=== PATIENT | female | born 1970 | race Caucasian/White ===

== ENCOUNTER → 2020-08-11 | Outpatient (CLI) | payer OTHER, MEDICAID ==
[~2020-08-11] MED LIST: CATHETER FLUSH 10 ML SYR IV PRN; CITA10TA PO; HOLD METFORMIN - RECEIVED CONTRAST 20 ML VIAL IV SCH; IOHEXOL 350 MG/ML 100 ML (OMNIPAQUE 350) VIAL IV ONE; LAMO25TA8 PO; LEVE500T PO; LEVE500T99 PO; NS 100 ML (IVPB) BAG IV ONE; SULF1TAB38 PO
--- NOTE | 2020-08-11 15:49 | Diagnostic Imaging Report ---
PROCEDURE: CT abdomen with contrast only. TECHNIQUE: Multiple contiguous axial images were obtained through the abdomen after the administration of intravenous contrast. Auto Exposure Controls were utilized during the CT exam to meet ALARA standards for radiation dose reduction. INDICATION: Unintentional weight loss. COMPARISON: None available. FINDINGS: Lung bases are clear. No pericardial or pleural effusion. No free intraperitoneal air or fluid. The liver is on the upper limits of normal in size measuring 19 cm in length. No nodularity to liver surface. There are a few subcentimeter hypodensities within the liver of indeterminate in nature. The largest right lower lobe (segment 6) measures 0.8 cm as seen on image 35, series 2. Gallbladder is normally filled without radiopaque gallstones. No biliary duct dilatation. The spleen is normal in size without mass lesion. Pancreas is normal. No adrenal mass. Kidneys enhance symmetrically without solid mass or obstruction. No abdominal lymphadenopathy. No dilated loops of bowel. Normal caliber abdominal aorta. Normal regional skeleton. IMPRESSION: 1. Mild hepatomegaly without features of steatosis or cirrhosis. 2. There are few scattered subcentimeter hypodensities within liver that are too small to characterize but statistically likely benign cyst. Consider follow-up CT abdomen without and with IV contrast per the liver protocol in 3-6 months to ensure stability. 3. Otherwise, no abnormality within the abdomen. Dictated by: Dictated on workstation # [id number]
== END ==
LOC: RAD FS 14:30
PROVIDERS: ATTEND Physician Assistant Surgical
DX: R16.0 Hepatomegaly, not elsewhere classified (principal)
CPT/HCPCS: 74160

== ENCOUNTER → 2020-10-31 | Outpatient (CLI) | payer OTHER, MEDICAID ==
[~2020-10-31] MED LIST changes: -CATHETER FLUSH 10 ML SYR IV PRN; -HOLD METFORMIN - RECEIVED CONTRAST 20 ML VIAL IV SCH; -IOHEXOL 350 MG/ML 100 ML (OMNIPAQUE 350) VIAL IV ONE; -NS 100 ML (IVPB) BAG IV ONE
== END ==
LOC: LAB FS 15:59
PROVIDERS: ATTEND Internal Medicine Gastroenterology
DX: K29.60 Other gastritis without bleeding (principal); K29.70 Gastritis, unspecified, without bleeding; K29.80 Duodenitis without bleeding
CPT/HCPCS: 36415; 82784; 83516; 86677

== ENCOUNTER → 2020-12-12 | Outpatient (CLI) | payer MEDICAID, OTHER | LOC: LAB FS 10:10 | DX: Z01.812 Encounter for preprocedural laboratory examination (principal); Z20.822 Contact with and (suspected) exposure to COVID-19 | CPT/HCPCS: 87635 ==

== ENCOUNTER → 2021-04-17 | Outpatient (CLI) | payer MEDICAID | LOC: LAB FS 10:10 | PROVIDERS: ATTEND Student in an Organized Health Care Education/Training Program | DX: Z01.812 Encounter for preprocedural laboratory examination (principal); Z20.822 Contact with and (suspected) exposure to COVID-19 | CPT/HCPCS: 87635 ==

== ENCOUNTER → 2021-05-11 | Outpatient (CLI) | payer MEDICARE, MEDICAID ==
[2021-05-11 12:25] LABS: CALCIUM 9.6 MG/DL (8.5-10.1); CREATININE SERUM 0.67 MG/DL (0.60-1.30); POTASSIUM 4.3 MMOL/L (3.6-5.0)
== END ==
LOC: LAB FS 11:46
PROVIDERS: ATTEND Nurse Practitioner Family
DX: E87.1 Hypo-osmolality and hyponatremia (principal)
CPT/HCPCS: 36415; 80048

== ENCOUNTER → 2021-07-03 | Outpatient (CLI) | payer MEDICARE, MEDICAID | LOC: LAB FS 10:00 | PROVIDERS: ATTEND Student in an Organized Health Care Education/Training Program | DX: Z01.812 Encounter for preprocedural laboratory examination (principal); Z20.822 Contact with and (suspected) exposure to COVID-19 | CPT/HCPCS: 87635 ==

== ENCOUNTER 2021-08-21 08:52 | Emergency (ER) | payer MEDICARE, MEDICAID ==
[~2021-08-21] VITALS: Ht 154 cm; Wt 55.0 kg
--- NOTE | 2021-08-21 09:17 | ED General ---
General Chief Complaint: Chest Pain Stated Complaint: CHEST PAIN History of Present Illness Date Seen by Provider: Aug 21, 2021 Time Seen by Provider: 09:17 Initial Comments Patient presenting to emergency department for evaluation of chest pain that she says has been going on and off for the past 1 week. She describes it as a heavy sensation in the center of her chest that does not radiate cause her shortness of breath diaphoresis nausea or vomiting. She says it is not associated with anything that she can think of including exertion deep breaths movements eating drinking. She says it lasts for anywhere from 3 to 5 minutes at a time and then goes away and this occurs approximately 2 times a day. She has a history of hypertension for which she takes medications in addition she smokes cigarettes and says her father had a heart attack in his 50s and required bypass surgery. She denies any prior cardiac or stratification including no stress test or heart catheterization. She is in no acute distress with normal vital signs other than hypertension noted. Allergies and Home Medications Allergies Coded Allergies: Penicillins (Verified Allergy, Unknown, 08/15/15) Patient Home Medication List Home Medication List Reviewed: Yes Lamotrigine (Lamotrigine) 25 Mg Tablet, 25 MG PO HS Prescribed by: LEIDY HEWITT on 08/15/15 1133 Levetiracetam (Keppra) 500 Mg Tablet, 1,000 MG PO BID, (Reported) Entered as Reported by: GRACE REN on 08/15/15 1042 Review of Systems Review of Systems Constitutional: no symptoms reported EENTM: ear discharge Respiratory: no symptoms reported Cardiovascular: chest pain Gastrointestinal: no symptoms reported Musculoskeletal: no symptoms reported Skin: no symptoms reported Psychiatric/Neurological: No Symptoms Reported All Other Systems Reviewed Negative Unless Noted: Yes Past Lheiart-Upndow-Klsejk Hx Past Medical History Tubal Ligation COPD Seizure Disorder Family Medical History Heart Disease, Diabetes Physical Exam Vital Signs Vital Signs - First Documented 08/21/21 09:16 Temp 36.6 Pulse 65 B/P (MAP) 174/94 (120) Capillary Refill : Height, Weight, BMI Height: 5'2" Weight: 125lbs. 3.0oz. 56.371924at; BMI Method:Stated General Appearance: No Apparent Distress, WD/WN HEENT: PERRL/EOMI Neck: Supple Respiratory: Lungs Clear, No Respiratory Distress Cardiovascular: Regular Rate, Rhythm Gastrointestinal: Non Tender, Soft Back: Normal Inspection Extremity: Normal Capillary Refill Neurologic/Psychiatric: Alert, Oriented x3 Skin: Warm/Dry Progress/Results/Core Measures Suspected Sepsis SIRS Temperature: Pulse: Respiratory Rate: Laboratory Tests 08/21/21 09:05: White Blood Count 9.7 Blood Pressure / Mean: Laboratory Tests 08/21/21 09:05: Creatinine 0.68, Platelet Count 347, Total Bilirubin 0.3 Results/Orders Lab Results Laboratory Tests Test 08/21/21 09:05 Range/Units White Blood Count 9.7 4.3-11.0 10^3/uL Red Blood Count 4.19 3.80-5.11 10^6/uL Hemoglobin 13.1 11.5-16.0 g/dL Hematocrit 40 35-52 % Mean Corpuscular Volume 95 80-99 fL Mean Corpuscular Hemoglobin 31 25-34 pg Mean Corpuscular Hemoglobin Concent 33 32-36 g/dL Red Cell Distribution Width 13.5 10.0-14.5 % Platelet Count 347 130-400 10^3/uL Mean Platelet Volume 9.1 9.0-12.2 fL Immature Granulocyte % (Auto) 0 % Neutrophils (%) (Auto) 59 42-75 % Lymphocytes (%) (Auto) 35 12-44 % Monocytes (%) (Auto) 5 0-12 % Eosinophils (%) (Auto) 0 0-10 % Basophils (%) (Auto) 1 0-10 % Neutrophils # (Auto) 5.7 1.8-7.8 X 10^3 Lymphocytes # (Auto) 3.4 1.0-4.0 X 10^3 Monocytes # (Auto) 0.4 0.0-1.0 X 10^3 Eosinophils # (Auto) 0.0 0.0-0.3 10^3/uL Basophils # (Auto) 0.1 0.0-0.1 10^3/uL Immature Granulocyte # (Auto) 0.0 0.0-0.1 10^3/uL Sodium Level 135 135-145 MMOL/L Potassium Level 3.6 3.6-5.0 MMOL/L Chloride Level 99 98-107 MMOL/L Carbon Dioxide Level 23 21-32 MMOL/L Anion Gap 13 5-14 MMOL/L Blood Urea Nitrogen 9 7-18 MG/DL Creatinine 0.68 0.60-1.30 MG/DL Estimat Glomerular Filtration Rate 92 BUN/Creatinine Ratio 13 Glucose Level 112 H 70-105 MG/DL Calcium Level 9.9 8.5-10.1 MG/DL Corrected Calcium 9.5 8.5-10.1 MG/DL Total Bilirubin 0.3 0.1-1.0 MG/DL Aspartate Amino Transf (AST/SGOT) 15 5-34 U/L Alanine Aminotransferase (ALT/SGPT) 15 0-55 U/L Alkaline Phosphatase 84 40-136 U/L Troponin I < 0.30 <0.30 NG/ML Total Protein 7.7 6.4-8.2 GM/DL Albumin 4.5 3.2-4.5 GM/DL Lipase 35 8-78 U/L My Orders Orders - JASPREET WEST DO Iv/Invasive Line Insertion .IV start (08/21/21 09:17) Cbc With Automated Diff (08/21/21 09:17) Comprehensive Metabolic Panel (08/21/21 09:17) Chest 1 View Ap/Pa Only (08/21/21 09:17) Troponin I Fs (08/21/21 09:17) Lipase (08/21/21 09:17) Probnp Fs (08/21/21 09:17) Aspirin Chewable Tablet (Baby Aspirin Ch (08/21/21 09:30) Medications Given in ED Current Medications Medications Dose Ordered Sig/Bryon Route Start Time Stop Time Status Last Admin Dose Admin Aspirin 324 mg ONCE ONCE PO 08/21/21 09:30 08/21/21 09:31 DC 08/21/21 09:33 324 MG Vital Signs/I&O 08/21/21 09:16 Temp 36.6 Pulse 65 B/P (MAP) 174/94 (120) Capillary Refill : Progress Note : Progress Note Will check labs imaging treat symptoms and reassess. Patient has been symptom-free here and her initial blood pressure was elevated but it trended towards a normal range at 144/83. Patient's troponin is negative more than 6 hours out from the onset of symptoms and her EKG does not show any obvious ST elevation or depression. Patient was told that she has a heart score equal to 4 based off her age and risk factors putting her at moderate risk for adverse coronary event. I discussed benefits and risks of inpatient versus outpatient evaluation for her chest pain and using shared decision making she made the decision that she would like to go home and follow-up as an outpatient for further cardiac or stratification. I told her should she should take an aspirin daily in addition to not exerting herself. I also advised that she needs to stop smoking as soon as possible. I told her I cannot will prescribe her a PPI inhaler that she can see if these help her symptoms but that coronary artery disease cannot be completely excluded in the emergency department. She verbalized understanding and accepted the risks of and disability by not having a full work-up. I told her she should call her primary care provider to day to get a stress test arranged soon as possible and if she has any new or worsening symptoms she needs to come back to the emergency department immediately. Patient aware and agreeable with plan for discharge and verbalized understanding of the above instructions. Departure Impression Primary Impression: Chest pain Qualified Codes: R07.9 - Chest pain, unspecified Disposition: 01 HOME, SELF-CARE Condition: Stable Departure-Patient Inst. Referrals: ANTWON HARRELL APRN (PCP) Primary Care Physician [facility] (Family) Primary Care Physician Patient Instructions: Acute Pain, Adult Scripts Albuterol Sulfate (PROAIR HFA) 1 Puff Puff 2 PUFF IH Q4H for 14 Days, #1 EA 1 PUFF = 90 MCG Prov: JASPREET WEST DO 08/21/21 Omeprazole Magnesium (Prilosec Otc) 20 Mg Tablet.dr 20 MG PO DAILY for 30 Days, #30 TAB Prov: JASPREET WEST DO 08/21/21 Aspirin (Aspirin) 81 Mg Tab.chew 81 MG PO DAILY for 30 Days, #30 TAB Prov: JASPREET WEST DO 08/21/21 JASPREET WEST DO Aug 21, 2021 09:17
[2021-08-21 09:27] LABS: HEMATOCRIT 40 % (35-52); HEMOGLOBIN 13.1 g/dL (11.5-16.0); MEAN CORPUSCULAR HEMOGLOBIN 31 pg (25-34); MEAN CORPUSCULAR VOLUME 95 fL (80-99); PLATELET COUNT 347 10^3/uL (130-400); WHITE BLOOD COUNT 9.7 10^3/uL (4.3-11.0)
[2021-08-21 09:28] LABS: MEAN CORPUSCULAR HGB CONC 33 g/dL (32-36); MEAN PLATELET VOLUME 9.1 fL (9.0-12.2)
[2021-08-21 09:29] LABS: BASOPHILS # (AUTO) 0.1 10^3/uL (0.0-0.1); BASOPHILS % (AUTO) 1 % (0-10); EOSINOPHILS % (AUTO) 0 % (0-10); LYMPHOCYTES # (AUTO) 3.4 X 10^3 (1.0-4.0); LYMPHOCYTES % (AUTO) 35 % (12-44); MONOCYTES # (AUTO) 0.4 X 10^3 (0.0-1.0); MONOCYTES % (AUTO) 5 % (0-12); NEUTROPHILS # (AUTO) 5.7 X 10^3 (1.8-7.8); NEUTROPHILS % (AUTO) 59 % (42-75)
[2021-08-21] MEDS ORDERED: ASPIRIN 81 MG CHEW (CHILDREN'S ASA) PO ONE (09:30)
--- NOTE | 2021-08-21 09:37 | Diagnostic Imaging Report ---
Clinical indication: Patient with chest pain x1 week often arm. Exam: Portable chest x-ray upright view. Comparisons: Chest x-ray dated 11/05/2013. Findings: Lungs/pleura: Lungs are clear. There is no pneumothorax. There is no pleural effusion. Mediastinum: Unremarkable. Pulmonary vasculature: Unremarkable. Heart: Unremarkable. Bones/extrathoracic soft tissue: There are degenerative spurs involving the thoracic spine. Impression: There is no radiographic evidence of acute cardiopulmonary process. Dictated by: Dictated on workstation # [id number]
[2021-08-21 09:46] LABS: SODIUM 135 MMOL/L (135-145)
[2021-08-21 09:48] LABS: BUN/CREATININE RATIO 13; CARBON DIOXIDE 23 MMOL/L (21-32); CHLORIDE 99 MMOL/L (98-107); CREATININE SERUM 0.68 MG/DL (0.60-1.30); GFR ESTIMATED 92; POTASSIUM 3.6 MMOL/L (3.6-5.0)
[2021-08-21 09:49] LABS: ALANINE AMINOTRANSFERASE 15 U/L (0-55); ALBUMIN 4.5 GM/DL (3.2-4.5); ALKALINE PHOSPHATASE 84 U/L (40-136); BILIRUBIN,TOTAL 0.3 MG/DL (0.1-1.0); CALCIUM 9.9 MG/DL (8.5-10.1); GLUCOSE 112 MG/DL (70-105); LIPASE 35 U/L (8-78); TOTAL PROTEIN 7.7 GM/DL (6.4-8.2)
[2021-08-21 10:51] VITALS: BP 172/82
[2021-08-21] MEDS ORDERED: ASPI-999 PO (10:51)
[2021-08-21] MEDS ORDERED: OMEP20TA33 PO (10:51)
[2021-08-21] MEDS ORDERED: RT-ALBUINH IH (10:51)
== END 2021-08-21 10:52 | disposition home or self-care (01) ==
LOC: EDUNIT# 08:52 → ER FS 08:54
DX: R07.9 Chest pain, unspecified (principal); J44.9 Chronic obstructive pulmonary disease, unspecified; G40.909 Epilepsy, unspecified, not intractable, without status epilepticus; I10 Essential (primary) hypertension; F17.210 Nicotine dependence, cigarettes, uncomplicated; Z79.899 Other long term (current) drug therapy
CPT/HCPCS: 36415; 71045; 80053; 83690; 83880; 84484; 85025; 93005

== ENCOUNTER → 2021-12-13 | Outpatient (CLI) | payer MEDICARE, MEDICAID ==
[~2021-12-13] VITALS: Ht 154 cm; Wt 52.0 kg
[~2021-12-13] MED LIST changes: +ASPI-999 PO; +OMEP20TA33 PO; +REGADENOSON 0.4 MG/5 ML SYR (LEXISCAN) IV ONE; +RT-ALBUINH IH
[2021-12-13] MEDS: CATHETER FLUSH 10 ML SYR IVP PRN ×2 (11:15→12:59)
[2021-12-13 12:50] VITALS: BP 148/86
--- NOTE | 2021-12-16 11:37 | NUCLEAR STRESS TEST ---
REGADENOSON NUCLEAR STRESS Date of procedure: 12/13/2021. Primary care provider: Latrice Sherman APRN Admitting physician: Aikra Amaral Jr., MD. INDICATION: Abnormal electrocardiogram. BASELINE ELECTROCARDIOGRAM: Sinus rhythm with possible old septal myocardial infarction STRESS TEST PROCEDURE: This was initially intended to be a treadmill nuclear stress test but the patient could not obtain her target heart rate and this was changed over to a regadenoson nuclear stress test. The patient was administered 0.4 mg of intravenous Regadenoson. The resting heart rate was 70 bpm and the peak heart rate was 117 bpm. The resting blood pressure was 140/80 mmHg and the minimum blood pressure was 120/86 mmHg. This represents a [] heart rate and a [] blood pressure response to Regadenoson. The test was stopped due to the protocol. There was no chest discomfort during the test. There were no arrhythmias during the test. There was approximately 1-[address] depression in multiple leads that improved in recovery. NUCLEAR PROCEDURE: The patient was administered 10.5 mCi of intravenous technetium 99m Tetrofosmin at rest for the rest images. The patient was subsequently administered 30.8 mCi of intravenous technetium 99m Tetrofosmin at peak stress for the stress images. Following an appropriate wait after each injection, imaging was obtained. The images were subsequently processed and reformatted in the usual views. Gated imaging was obtained. The image quality was adequate but with a moderate degree of gastrointestinal and breast attenuation artifact. CT attenuation correction was used as a adjunct to standard imaging. Both the corrected and uncorrected images were reviewed for interpretation. NUCLEAR RESULTS: There was normal myocardial perfusion in all segments without evidence of infarction or ischemia. There was normal left ventricular chamber s ize with an end-diastolic volume of 61 mL and an end-systolic volume of 29 mL. There was no evidence of transient ischemic dilatation. The TID ratio was 1.19. There was normal wall motion in all segments with a calculated ejection fraction of 53%. IMPRESSION: 1. Normal heart rate and blood pressure response to regadenoson. 2. There was no chest discomfort or arrhythmias during the test. 3. There were abnormal electrocardiogram changes during the regadenoson infusion that improved in recovery. This is considered a nonspecific finding with regadenoson. 4. There was normal myocardial perfusion in all segments without evidence of infarction or ischemia. 5. There was normal wall motion in all segments with a calculated ejection fraction of 53%. Certain portions of this document may have been dictated utilizing voice recognition technology. Inherent to this technology, typographical and grammatical errors may exist. As much as I am diligent to identify and correct these mistakes, some errors may remain in the document. AKIRA AMARAL JR, MD Dec 16, 2021 11:37
== END ==
LOC: CARD 11:00
PROVIDERS: ATTEND Internal Medicine Cardiovascular Disease
DX: I07.1 Rheumatic tricuspid insufficiency (principal)
CPT/HCPCS: 78452; 93017; 93306; A9502

== ENCOUNTER → 2021-12-19 | Outpatient (CLI) | payer MEDICARE, MEDICAID ==
[~2021-12-19] MED LIST changes: +CATHETER FLUSH 10 ML SYR IV PRN; +HOLD METFORMIN - RECEIVED CONTRAST 20 ML VIAL IV SCH; +IOHEXOL 350 MG/ML 100 ML (OMNIPAQUE 350) VIAL IV ONE; +NS 100 ML (IVPB) BAG IV ONE; -REGADENOSON 0.4 MG/5 ML SYR (LEXISCAN) IV ONE
[2021-12-19 09:15] LABS: BILIRUBIN,TOTAL 0.2 MG/DL (0.1-1.0); CALCIUM 10.1 MG/DL (8.5-10.1); CREATININE SERUM 0.65 MG/DL (0.60-1.30); POTASSIUM 4.2 MMOL/L (3.6-5.0); TOTAL PROTEIN 7.4 GM/DL (6.4-8.2)
[2021-12-19 09:16] LABS: ALBUMIN 4.5 GM/DL (3.2-4.5)
--- NOTE | 2021-12-19 13:04 | Diagnostic Imaging Report ---
EXAMINATION: CT abdomen and pelvis with and without intravenous contrast. TECHNIQUE: Precontrast acquisitions were acquired through the abdomen and pelvis. Multiple contiguous axial images were obtained through the abdomen and pelvis after the administration of intravenous contrast. All CT scans use one or more of the following dose optimizing techniques: automated exposure control, MA and/or KvP adjustment based on patient size and exam type or iterative reconstruction. HISTORY: Follow-up liver cyst. COMPARISON: 08/11/2020. FINDINGS: The heart is unremarkable. The included lung bases are clear. Stable mild hepatomegaly. No micronodular contour is seen. Stable to decrease in size of scattered subcentimeter cysts in the liver, the largest in the inferior aspect of the right hepatic lobe measuring 0.6 cm. No suspicious hepatic lesions are seen. The portal vein is patent. The gallbladder is unremarkable. No intra or extrahepatic biliary dilation. The spleen, pancreas, adrenal glands, and kidneys have a normal appearance. There is no pathologically enlarged mesenteric or retroperitoneal adenopathy. The bowel loops are nondilated. The appendix is visualized in the right lower quadrant and has a normal appearance. There is no free fluid or free air. No acute osseous abnormalities. There is calcified aortic and iliac atherosclerotic plaque without aneurysm. The urinary bladder is moderately distended. There is no free air, loculated collection, or adenopathy in the pelvis. IMPRESSION: 1. Stable mild hepatomegaly with stable benign-appearing simple hepatic cysts. No suspicious hepatic lesions or evidence of cirrhosis. The prominent liver size may reflect Bhumi's lobe, a benign normal variant. Recommend correlation with LFTs and follow-up as indicated. Dictated by: Dictated on workstation # [id number]
== END ==
LOC: LAB FS 08:40
PROVIDERS: ATTEND Pediatrics
DX: K76.89 Other specified diseases of liver (principal); R16.0 Hepatomegaly, not elsewhere classified
CPT/HCPCS: 36415; 74178; 80053; Q9967

== ENCOUNTER → 2023-08-26 | Outpatient (CLI) | payer MEDICARE, MEDICAID ==
[~2023-08-26] MED LIST changes: +ALBU8.5H6 IH; -CATHETER FLUSH 10 ML SYR IV PRN; +CATHETER FLUSH 10 ML SYR IVP PRN; -HOLD METFORMIN - RECEIVED CONTRAST 20 ML VIAL IV SCH; -IOHEXOL 350 MG/ML 100 ML (OMNIPAQUE 350) VIAL IV ONE; -NS 100 ML (IVPB) BAG IV ONE; +REGADENOSON 0.4 MG/5 ML SYR IV ONE; -RT-ALBUINH IH
[2023-08-26 09:02] VITALS: BP 182/85
--- NOTE | 2023-08-28 12:19 | STRESS TEST ---
DATE OF SERVICE: 08/26/2023 RESTING AND POST REGADENOSON TECHNETIUM-99M TETROFOSMIN SPECT CT IMAGING ORDERING PHYSICIAN: Dr. Wang. PRIMARY PHYSICIAN: [facility]. CLINICAL DIAGNOSIS: Chest discomfort. Baseline images were carried out after injection of 10.29 mCi of technetium-99m tetrofosmin. This was followed by 0.4 mg regadenoson and 31.3 mCi of technetium-99m tetrofosmin for stress imaging. The electrocardiogram showed sinus rhythm with subtle, nonspecific ST abnormality at baseline. It did not change significantly with regadenoson infusion. The patient noted some shortness of breath, which resolved in a few minutes. Review of images at rest and following stress does not indicate any distinct perfusion defects consistent with significant myocardial ischemia or infarction. Gated images show normal global left ventricular systolic function with normal regional wall motion. Left ventricular ejection fraction is calculated to be 55%. CONCLUSIONS: 1. No evidence of any significant myocardial ischemia or infarction on this study. 2. Normal regional wall motion. 3. Normal global left ventricular systolic function with a calculated ejection fraction 55%. Job ID: [id number] DocumentID: [id number] Dictated Date: 08/28/2023 09:38:13 Obiee Consultant Date: 08/28/2023 12:17:00 Dictated By: DAVID WANG MD; CARLOS; FACP; FACC;
== END ==
LOC: CARD 07:03
PROVIDERS: ATTEND Internal Medicine Cardiovascular Disease
DX: R07.9 Chest pain, unspecified (principal)
CPT/HCPCS: 78452; 93017; A9502